=== PATIENT | male | born 1975 | race Caucasian/White ===

== ENCOUNTER 2019-05-23 17:08 | Emergency (ER) | payer BC ==
[2019-05-23 18:10] LABS: BLOOD UREA NITROGEN,BUN 12 mg/dL (7.0-18.0); CARBON DIOXIDE,CO2 25.6 mmol/L (21.0-32.0); CHLORIDE,CL 105 mmol/L (98-107); GLUCOSE RANDOM 87 mg/dL (74-106); POTASSIUM,K 4.3 mmol/L (3.5-5.1); SODIUM,NA 141 mmol/L (136-148)
[2019-05-23] MEDS ORDERED: Ibuprofen 800 MG Tab PO ONE (18:25)
--- NOTE | 2019-05-23 18:35 | CR ---
Chest: Portable view of the chest was obtained. Comparison: No prior chest x-ray is available. Heart size and mediastinum are normal. Lungs are clear. Bony structures are grossly intact. Impression: 1. Nothing acute is appreciated on portable chest x-ray. Diagnostic code #1 This report was dictated in [place] Standard Time
--- NOTE | 2019-05-23 18:37 | EDM.PDOC ---
ED [facility] GENERAL MEDICAL PROBLEM - General Chief Complaint: Respiratory Problem Stated Complaint: BREARHING PROBLEM Time Seen by Provider: 05/23/19 18:00 Source of Information: Reports: Patient History Limitations: Reports: No Limitations - History of Present Illness INITIAL COMMENTS - FREE TEXT/NARRATIVE: Patient is a 44-year-old male with a past medical history of obesity and smoking. Patient reports having a cough x2 weeks. Patient states that he initially had some fevers and chills but those have subsided. Patient states the cough got worse over the past 2 days. Patient denies any productivity of the cough. Patient states he was sent in here from his job. Patient denies any chest pain or shortness of breath. Patient denies any lower extremity swelling. Patient is not taking any medication for any of the symptoms. Patient states he just has coughing fits where he feels sick to his stomach afterwards. Denies any recent travels, vomiting or diarrhea. Pmhx: Obesity Pshx: None Family Hx: noncontributory Smoking history? Yes Etoh use? none Drug use? none In addition to that documented in the HPI above, the additional ROS was obtained : Constitutional: Denies fevers or chills Eyes: Denies vision changes ENMT: Reports sore throat CV: Denies chest pain Resp: Denies SOB GI: Denies vomiting or diarrhea : Denies painful urination MSK: Denies recent trauma Skin: Denies new rashes Neuro: Denies new numbness or tingling or weakness Endocrine: Denies unexpected weight loss Heme: Denies bleeding disorders I have reviewed the triage vital signs Const: Well nourished, well developed, appears stated age Eyes: PERRL, no conjunctival injection HENT: NCAT, Neck supple without meningismus CV: RRR, Warm, well-perfused extremities RESP: CTAB, Unlabored respiratory effort GI: soft, non-tender, non-distended, no masses MSK: No gross deformities appreciated Skin: Warm, dry. No rashes Neuro: Alert, wound nurse II-XII grossly intact. Sensation and motor function of extremities grossly intact. Psych: Appropriate mood and affect Assessment and plan: Patient is a 44-year-old male with normal vital signs presenting with cough times almost 2 weeks now. Patient has no evidence of pneumonia on chest x-ray. Patient's labs are within normal limits. Patient no evidence of shortness of breath or pulmonary edema. Patient may have bronchitis which is complicated by his smoking history. Patient given symptomatic relief with Tessalon and albuterol. Patient encouraged to stop smoking. All questions addressed and answered. Patient given strict return precautions. chest Pain Score (Numeric/FACES): 5 - Related Data Allergies Allergy/AdvReac Type Severity Reaction Status Date / Time No Known Allergies Allergy Verified 05/23/19 17:29 Home Meds: Home Meds Albuterol [Ventolin 2 MG/5 ML] 0.4 mg PO Q4HR #1 ml 05/23/19 [Rx] Benzonatate [Tessalon Perle] 100 mg PO TID #30 capsule 05/23/19 [Rx] Past Medical History - Past Health History Medical/Surgical History: Denies Medical/Surgical History Social & Family History - Family History Family Medical History: Noncontributory - Tobacco Use Smoking Status *Q: Never Smoker Second Hand Smoke Exposure: No - Caffeine Use Caffeine Use: Reports: None - Recreational Drug Use Recreational Drug Use: No ED ROS GENERAL - Review of Systems Review Of Systems: See Below ED EXAM, GENERAL - Physical Exam Exam: See Below Course - Vital Signs Last Recorded V/S: Last Vital Signs Temp 35.6 C L 05/23/19 17:30 Pulse 73 05/23/19 18:55 Resp 16 05/23/19 18:55 BP 127/83 05/23/19 18:55 Pulse Ox 96 05/23/19 18:55 - Orders/Labs/Meds Orders: Active Orders 24 hr Category Date Time Status EKG Documentation Completion [RC] STAT Care 05/23/19 17:35 Active Labs: Laboratory Tests 05/23/19 05/23/19 Range/Units 17:23 17:23 WBC 6.84 (4.0-11.0) K/uL RBC 4.86 (4.50-5.90) M/uL Hgb 15.2 (13.0-17.0) g/dL Hct 43.4 (38.0-50.0) % MCV 89.3 (80.0-98.0) fL MCH 31.3 (27.0-32.0) pg MCHC 35.0 (31.0-37.0) g/dL RDW Std Deviation 42.2 (28.0-62.0) fl RDW Coeff of Berenice 13 (11.0-15.0) % Plt Count 211 (150-400) K/uL MPV 10.20 (7.40-12.00) fL Neut % (Auto) 55.9 (48.0-80.0) % Lymph % (Auto) 34.5 (16.0-40.0) % [place] % (Auto) 7.7 (0.0-15.0) % Eos % (Auto) 1.3 (0.0-7.0) % Baso % (Auto) 0.6 (0.0-1.5) % Neut # (Auto) 3.8 (1.4-5.7) K/uL Lymph # (Auto) 2.4 (0.6-2.4) K/uL [place] # (Auto) 0.5 (0.0-0.8) K/uL Eos # (Auto) 0.1 (0.0-0.7) K/uL Baso # (Auto) 0.0 (0.0-0.1) K/uL Nucleated RBC % 0.0 /100WBC Nucleated RBCs # 0 K/uL Sodium 141 (136-148) mmol/L Potassium 4.3 (3.5-5.1) mmol/L Chloride 105 (98-107) mmol/L Carbon Dioxide 25.6 (21.0-32.0) mmol/L BUN 12 (7.0-18.0) mg/dL Creatinine 0.9 (0.8-1.3) mg/dL Est Cr Clr Drug Dosing 112.57 mL/min Estimated GFR (MDRD) > 60.0 ml/min Glucose 87 (74-106) mg/dL Calcium 9.1 (8.5-10.1) mg/dL Total Bilirubin 0.4 (0.2-1.0) mg/dL AST 23 (15-37) IU/L ALT 33 (14-63) IU/L Alkaline Phosphatase 94 (46-116) U/L Total Protein 7.8 (6.4-8.2) g/dL Albumin 3.8 (3.4-5.0) g/dL Globulin 4.0 (2.6-4.0) g/dL Albumin/Globulin Ratio 0.9 (0.9-1.6) Meds: Medications Discontinued Medications Generic Name Dose Route Start Last Admin Trade Name Omar PRN Reason Stop Dose Admin Ibuprofen 800 mg 05/23/19 18:25 05/23/19 18:45 Motrin PO 05/23/19 18:26 800 mg ONETIME ONE Administration Departure - Departure Time of Disposition: 18:36 Disposition: Home, Self-Care 01 Clinical Impression: Bronchitis - Discharge Information Prescriptions: Albuterol [Ventolin 2 MG/5 ML] 0.4 mg PO Q4HR #1 ml Benzonatate [Tessalon Perle] 100 mg PO TID #30 capsule Instructions: Acute Bronchitis, Adult, [id number] Referrals: PCP,None [Primary Care Provider] - Forms: ED Department Discharge Additional Instructions: The following information is given to patients seen in the emergency department who are being discharged to home. This information is to outline your options for follow-up care. We provide all patients seen in our emergency department with a follow-up referral. The need for follow-up, as well as the timing and circumstances, are variable depending upon the specifics of your emergency department visit. If you don't have a primary care physician on staff, we will provide you with a referral. We always advise you to contact your personal physician following an emergency department visit to inform them of the circumstance of the visit and for follow-up with them and/or the need for any referrals to a consulting specialist. The emergency department will also refer you to a specialist when appropriate. This referral assures that you have the opportunity for follow-up care with a specialist. All of these measure are taken in an effort to provide you with optimal care, which includes your follow-up. Under all circumstances we always encourage you to contact your private physician who remains a resource for coordinating your care. When calling for follow-up care, please make the office aware that this follow-up is from your recent emergency room visit. If for any reason you are refused follow-up, please contact the [facility] Emergency Department at and asked to speak to the emergency department charge nurse. Sepsis Event Note - Evaluation Sepsis Screening Result: No Definite Risk - Focused Exam Date Exam was Performed: 05/24/19 Time Exam was Performed: 13:26 - My Orders Last 24 Hours: My Active Orders 05/23/19 17:35 EKG Documentation Completion [RC] STAT - Assessment/Plan Last 24 Hours: My Active Orders 05/23/19 17:35 EKG Documentation Completion [RC] STAT
== END 2019-05-23 18:56 | disposition home or self-care (01) ==
LOC: MW.ED 17:08
DX: J40 Bronchitis, not specified as acute or chronic (principal); F17.200 Nicotine dependence, unspecified, uncomplicated; E66.9 Obesity, unspecified; Z68.38 Body mass index [BMI] 38.0-38.9, adult
CPT/HCPCS: 36415; 71045; 80053; 85025; 93005; 99284; A9270